=== PATIENT | male | born 1995 | race African-American/Black ===

== ENCOUNTER 2016-09-28 08:48 | Emergency (ER) | payer BC ==
[~2016-09-28] VITALS: Ht 182.9 cm; Wt 76.0 kg
[~2016-09-28 08:48] MED LIST: DOXY100T PO
[2016-09-28 08:51] VITALS: BP 128/76; PULSE 78; RESP 24; TEMP 101.5; O2SAT 99
[2016-09-28] MEDS ORDERED: ACETAMINOPHEN 325 MG TAB PO ONE (09:15)
--- NOTE | 2016-09-28 09:16 | PD ---
HPI Chief Complaint: ENT Complaint Time Seen by Provider: 09:12 Travel History International Travel<30 days: No Contact w/Intl Traveler<30days: No Traveled to known affect area: No History of Present Illness HPI 21-year-old male presents to the emergency Department with complaint of cough, nasal congestion, sore throat, body aches since Wednesday. Does not know if he's had fever can see is not taken his temperature at home. Denies nausea, vomiting , abdominal pain, shortness of breath, chest pain. History taking TheraFlu with no symptom relief. No one else is sick like him. Allergies to Motrin. Denies significant past medical history. No other modifying factors or associated signs and symptoms. PFSH Past Medical History Medical History: Denies Significant Hx Diminished Hearing: No Immunizations Current: Yes Social History Alcohol Use: No Tobacco Use: No Substance Use: No Allergies-Medications (Allergen,Severity, Reaction): Coded Allergies: Motrin (Verified Allergy, Unknown, 09/28/16) Reported Meds & Prescriptions Reported Meds & Active Scripts Active Tamiflu (Oseltamivir Phosphate) 75 Mg Cap 75 Mg PO BID 5 Days Doxycycline Hyclate 100 mg (Doxycycline Hyclate) 100 Mg Tab 100 Mg PO BID Review of Systems Except as stated in HPI: all other systems reviewed are Neg Physical Exam Narrative GENERAL: Well-nourished, well-developed male patient, in no acute distress; febrile 101.5, nontoxic-appearing SKIN: Warm and dry. No rash. HEAD: Atraumatic. Normocephalic. EYES: Pupils equal and round at 3 mm with brisk reaction. No scleral icterus. No injection or drainage. PERRLA. ENT: Mucosa pink and moist. Oropharynx with erythema; without edema or exudates. No uvular edema. No uvular, palatal, or tonsillar deviation. Airway patent. EARS: Bilateral pinnae and external canals appear within normal limits. Bilateral tympanic membranes without erythema, dullness or perforation. NECK: Trachea midline. No lymphadenopathy. CARDIOVASCULAR: Regular rate and rhythm. No murmur appreciated. RESPIRATORY: No accessory muscle use. Clear to auscultation. Breath sounds equal bilaterally. GASTROINTESTINAL: Abdomen soft, non-tender, nondistended. Hepatic and splenic margins not palpable. Bowel sounds are active 4 quadrants. MUSCULOSKELETAL: No obvious deformities. No clubbing. No cyanosis. No edema. NEUROLOGICAL: Awake and alert. Oriented 3. No obvious cranial nerve deficits. Motor grossly within normal limits. Normal speech. Moves all extremities. 5/5 strength to all extremities. PSYCHIATRIC: Appropriate mood and affect; insight and judgment normal. Data Data Last Documented VS Vital Signs Date Time Temp Pulse Resp B/P Pulse Ox O2 Delivery O2 Flow Rate FiO2 09/28/16 08:53 09/28/16 08:51 101.5 78 24 99 Room Air Orders Acetaminophen (Tylenol) (09/28/16 09:15) Influenzae A/B Antigen (09/28/16 09:07) Group A Rapid Strep Screen (09/28/16 09:07) MDM Medical Decision Making Medical Screen Exam Complete: Yes Emergency Medical Condition: Yes Medical Record Reviewed: Yes Differential Diagnosis Influenza, strep pharyngitis, viral illness Narrative Course 21-year-old male with cold/flu symptoms since Wednesday. Fever of 101.5 in the ER. Has not taken his temperature at home and cannot report a MAXIMUM TEMPERATURE. Patient is nontoxic-appearing. Tylenol ordered. Influenza and rapid strep ordered. 0947: Influenza positive. Rapid strep canceled secondary to swab being 2 years and patient being positive for flu. Discussed viral illness and symptomatic management. Tamiflu prescribed for home. Patient verbalizes understanding and agreement with treatment plan. Patient is medically cleared and stable for discharge. Discussed reasons to return to the emergency department. Instructed patient to follow up with primary care provider. Patient agrees with treatment plan. The patients vital signs are stable and the patient is stable for outpatient follow-up and treatment. Patient discharged home, stable and in no acute distress. Diagnosis Primary Impression: Influenza B Referrals: Primary Care Physician Patient Instructions: General Instructions, Influenza (ED), Safe Use of Cough and Cold Medicines (ED) Departure Forms: School Release, Enter return to school date ABOVE or choose options BELOW: Fever free for 24 hrs Tests/Procedures, Work Release Special Instructions: May return to work when fever free for 24 hours Additional Instructions: Tylenol as directed and as needed to reduce fever [id number] cold/flu medications as directed and as needed for symptom management Get plenty of sleep/rest Drink plenty of fluids to prevent dehydration [place] diet to encourage nutrition such as crackers, fruit, applesauce, toast, soup etc. Use an air humidifier/turn off ceiling fans Follow-up with your primary care provider within 1 day Return immediately to the emergency department with worsening of symptoms Med/Other Pt SpecificInfo: Prescription(s) given Scripts Oseltamivir (Tamiflu)75 Mg Cap75 Mg PO BID 5 Days Ref 0 Prov:Selena Reynolds 09/28/16 Disposition: 01 DISCHARGE HOME Condition: Stable Selena Reynolds Sep 28, 2016 09:16
[2016-09-28] MEDS ORDERED: OSEL75 PO (09:48)
== END 2016-09-28 10:01 | disposition home or self-care (01) ==
LOC: NETRI 08:48
DX: J10.1 Influenza due to other identified influenza virus with other respiratory manifestations (principal); J02.9 Acute pharyngitis, unspecified
CPT/HCPCS: 87804; 99283